=== PATIENT | male | born 1985 | race Hispanic/Latino ===

== ENCOUNTER 2020-07-25 20:56 | Emergency (ER) | payer OTHER ==
[~2020-07-25] VITALS: Ht 167.6 cm; Wt 69.9 kg
== END 2020-07-25 23:25 | disposition home or self-care (01) ==
LOC: ER 22:18
DX: S01.112A Laceration without foreign body of left eyelid and periocular area, initial encounter (principal); W01.190A Fall on same level from slipping, tripping and stumbling with subsequent striking against furniture, initial encounter; Y93.01 Activity, walking, marching and hiking; Y92.000 Kitchen of unspecified non-institutional (private) residence as the place of occurrence of the external cause; M21.371 Foot drop, right foot; K21.9 Gastro-esophageal reflux disease without esophagitis; F41.9 Anxiety disorder, unspecified
CPT/HCPCS: 70450; 99283